=== PATIENT | male | born 1995 | race Caucasian/White ===

== ENCOUNTER 2019-06-09 08:03 | Emergency (ER) | payer OTHER, SELFPAY | END 2019-06-09 09:00 | disposition home or self-care (01) | LOC: MADERS 08:03 | DX: J06.9 Acute upper respiratory infection, unspecified (principal); J32.9 Chronic sinusitis, unspecified; H66.92 Otitis media, unspecified, left ear | CPT/HCPCS: 99283 ==

== ENCOUNTER 2023-11-20 05:27 | Emergency (ER) | payer BC, SELFPAY ==
[2023-11-20] MEDS ORDERED: traMADol HCl 50 MG TAB ONE (05:57)
[2023-11-20] MEDS ORDERED: Dexamethasone 4 mg/ml Vial ONE (05:57)
== END 2023-11-20 06:46 | disposition home or self-care (01) ==
LOC: MADERS 05:27
DX: S33.5XXA Sprain of ligaments of lumbar spine, initial encounter (principal); M54.40 Lumbago with sciatica, unspecified side; F17.220 Nicotine dependence, chewing tobacco, uncomplicated; X50.9XXA Other and unspecified overexertion or strenuous movements or postures, initial encounter
CPT/HCPCS: 72131; 96372; J1100